=== PATIENT | female | born 1945 | race Caucasian/White ===

== ENCOUNTER 2018-03-05 07:28 | Day surgery (SDC) | payer OTHER, BC ==
[2018-03-05] MEDS ORDERED: PROPOFOL 40 ML (08:29)
== END 2018-03-05 11:12 | disposition home or self-care (01) ==
LOC: GIL 07:28
DX: Z12.11 Encounter for screening for malignant neoplasm of colon (principal); K57.30 Diverticulosis of large intestine without perforation or abscess without bleeding; K64.8 Other hemorrhoids; I10 Essential (primary) hypertension; K80.20 Calculus of gallbladder without cholecystitis without obstruction
CPT/HCPCS: 45378